=== PATIENT | male | born 1990 | race Caucasian/White ===

== ENCOUNTER 2025-01-03 17:10 | Inpatient (IN) | payer OTHER, SELFPAY ==
[2025-01-03 17:21] VITALS: BMI 27.0
[2025-01-03 17:29] VITALS: BP 148/83; PULSE 121; RESP 22; TEMP 37; O2SAT 97
--- OUTSIDE RECORDS SUMMARY | 2025-01-03 17:52 | XMS_ITS | Encounter Summary ---
Author Organization [facility] Address [address] [place] [id number] Phone Care Team Providers Care Surveyor Chain Helper Name Role Phone Addie Morris NP Primary Care Provider Encounter Details Date Type Department Care Team (Latest Contact Info) Description 02/23/2023 Transcribe Orders Virtual Department [address] [place] [address] Medina Wilson NP [address] [place] [id number] Wheezing (Primary Dx) Social History Tobacco Use Types Packs/Day Years Used Date Smoking Tobacco: Former Smokeless Tobacco: Current Snuff Alcohol Use Standard Drinks/Week Comments No 0 (1 standard drink = 0.6 oz pur e alcohol) Education Answer Date Recorded Are you interested in more education? Not on gregory e 06/03/2022 Are you concerned about learning? Not on file 06/03/2022 No 06/03/2022 No 06/03/2022 Digital Access Answer Date Recorded No 06/29/2022 No 06/29/2022 No 06/29/2022 Reliable internet access at home? Not on file 06/29/2022 Device with a working camera? Not on file Sex and Gender Information Value Date Recorded Sex Assigned at Male 02/13/2017 9:38 AM EST Legal Sex Male 8:57 PM EDT Gender Identity Male 02/13/2017 9:38 AM EST Sexual Orientation Straight 09/07/2023 12 :53 PM EDT documented as of this encounter Plan of Treatment Not on file documented as of this encounter Visit Diagnoses Diagnosis Wheezing- Primary documented in this encounter Care Teams Surveyor Chain Helper Relationship Specialty Start Date End Date Addie Morris NP [facility] [place] [address] [email or web address] PCP - General Family Medicine 09/25/17 documented as of this encounter Additional Source Comments The information contained in this document represents components of the legal health record. It is not the complete legal health record.[facility]
--- OUTSIDE RECORDS SUMMARY | 2025-01-03 17:52 | XMS_ITS | Clinical Summary ---
Author Organization [facility] Address [address] [place] [address] Phone Care Team Providers Care Validation Leader Name Role Phone Unavailable Primary Care Provider Unavailabl e Immunizations Immunization Administration Dates Next Due DTP 10/01/1998, 4,01/04/1993,10/27 Hep B, ped/adol 10/01/1998,08/04/1993,06/12/1993 Hib (HbOC) 03/05/1993,01/04/1993,1992 MMR 10/01/1998,12/28/1997 Meningococcal Conj (Menactra) MCV4P 09/03/2007 OPV 12/28/1997,01/04/1993,1992 Td (adult) (MBL), 2 Lf tetan us toxoid, PF, adsorbed 03/26/2004 Social History Tobacco Use Types Packs/Day Years Used Date Smoking Tobacco: Never Assessed Sex and Gender Information Value Date Recorded Sex Assigned at Not on file Legal Sex Male 4:08 PM EST Gender Identity Not on file Sexual Orientation Not on file Plan of Treatment Health Maintenance Due Date Last Done Comments DTaP,Tdap,and Td Vaccines (5 - Tdap) 03/27/2004 03/26/2004, 10/01/1998, 03/05/1993, Additional history exists Varicella Vaccines (1 of 2 - 13+ 2-dose series) 2005 HPV Vaccines (1 - 3-dose SCDM series) 08/31/2019 Influenza Vaccines (#1) 2024 COVID-19 Vaccine (1 - 2024- season) 2024 HIB Vaccines Aged Out 03/05/1993, 12/08, 1992 No longer eligible based on patient's age to complete this topic IPV Vaccines Completed 12/28/1997, 12/08, 1992 Hepatitis B Vaccines Completed 10/01/1998, 08/04/1993, 06/12/1993 MMR Vaccines Completed 10/01/1998, 12/28/1997 Meningococcal Vaccine Aged Out 09/03/2007 No melody sallie eligible based on patient's age to complete this topic Hepatitis A Vaccines Aged Out No long er eligible based on patient's age to complete this topic Men B Vaccine Aged Out No longer elig ible based on patient's age to complete this topic Pneumococcal Vaccine Aged Out No long er eligible based on patient's age to complete this topic
[2025-01-03 17:59] LABS: MANUAL DIFF FLAG NO
--- NOTE | 2025-01-03 17:59 | ED_ITS ---
HPI - Psych General Chief Complaint: Psychiatric Symptoms Stated Complaint: SECTION 12 Time Seen by Provider: 01/03/25 17:28 History of Present Illness ED Provider: Brady Cunningham MD HPI Narrative: [age] male sent [facility] facility requesting medication management. The patient is cooperative somewhat hyperactive. Denies SI or HI. Agrees to have his medications adjusted tells me he has only been taking Abilify and olanzapine he does smoke cigarettes denies drug use denies any injuries or any other acute medical Related Data Home Medications ?Medication ?Instructions ?Recorded ?Confirmed aripiprazole lauroxil 1,064 mg/3.9 1,064 mg IM [id number] S 01/03/25 01/03/25 mL suspension,ext.rel IM syringe fluvoxamine 100 mg tablet 100 mg PO BEDTIME 01/03/25 1 03/05/24 nicotine (polacrilex) 2 mg gum 2 mg PO Q2H PRN Nicotin e Cravings 01/03/25 01/03/25 olanzapine 20 mg tablet 30 mg PO BEDTIME 01/03/25 Allergies Allergy/AdvReac Type Severity Reaction Status Date / Time No Known Allergies Allergy Verified 01/03/25 17:30 [facility] Social History Social History Household Members: Family Housing: House Do you presently have visiting nurse or other home services: No Patient Tobacco Use Status: Never used Tobacco Smoked in Last 30 Days: No e-Cigarette/Vaping Use: Never Used Patient Interested in Nicotine Replacement: No Currently Displaying Signs/Symptoms of Drug Intoxication Withdrawal: No Have you been hit, kicked, punched, or otherwise hurt by someone within the past year? If so, by whom?: No Do you feel safe in your current relationship?: No Current Relationship Is there a partner from a previous relationship who is making you feel unsafe now?: No Are you made to feel afraid or neglected: No Advance Directives: No Advance Directives Information Provided: No Do you have thoughts of harming others: None Do you have a plan to hurt others: No Plan Recently lost weight without trying: No How much weight loss: Not applicable Eating poorly because of decreased appetite: No Nutrition screen score: 0 Nutrition Risks: No Nutritional Risk Poor oral hygiene: No service: No Sexual orientation: Straight/Heterosexual Physical Exam 2 Exam: Exam: EXAM: Gen: Alert, awake, well appearing, well hydrated. Head: Atraumatic Eyes: Anicteric, Normal conjunctiva. ENT: Moist mucosa, no pallor. ? Neck: Supple. Skin: ?No observable rash or bruising on exposed or examined skin Respiratory: Breathing comfortably, No distress.Clear to auscultation bilaterally, symmetric chest expansion, No wheeze, rales, ronchi. Cardiovascular: Regular rate and rhythm. No murmurs or rub. Well perfused periphery, warm extremities. No edema. ? Abdominal: No focal tenderness. Soft, no objective distension. No palpable masses or obvious organomegaly. ?No guarding, no rebound tenderness or other peritoneal findings. : No flank tenderness. Neuro: Alert. Gross movement of all extremities intact. ?Face symmetric cranial nerve testing grossly normal and not relevant to the current presentation. Psych: Calm. Cooperative. No SI or HI. Manic MSK: No grossly visible deformity. Vital signs: See flowsheet Vital Signs: Vital Signs: Last Vital Signs Temp 96.6 F L 01/07/25 07:39 Pulse 82 01/07/25 07:39 Resp 16 01/07/25 07:39 BP 149/87 H 01/07/25 07:39 Pulse Ox 96 01/07/25 07:39 O2 Del Method Room Air 01/07/25 07:39 BMI result Body Mass Index 27.0 Course Reevaluation(s) Reevaluation #1: Time: 06:04 Date: 01/04/25 Provider: Paras Palomares MD Patient in physician observation for psychiatric evaluation.? No acute events reported overnight. No current complaints. VS stable.? Patient is in bed search status. Will continue to monitor. 01/05/25 Provider: Triston Velázquez MD 04:44 Patient in physician observation for psychiatric evaluation.? No acute events reported overnight. No current complaints. VS stable.? Patient is an adult involuntary inpatient bed search status. Will continue to monitor. 10:50 Patient requested to speak to me regarding his section 12. I did inform him that has placed in his section 12 by the police when he was 1st brought to the emergency department. I told him that the 3 day evaluation does not start until he is hospitalized and evaluated by a psychiatric provider. I also told him that the 3 days are 3 business days only. The patient did seem to understand this discussion. While I was talking to him, the patient did have delusional thoughts regarding being ?outside of this timeline? and involved in the ?[employer] [place] at virus ?. The patient will remain on a section 12 and is an inpatient bed search. The patient is willing to take his outpatient medications and these were ordered for him. Nurse states he has been compliant. We will continue to monitor. Time: 04:26 Date: 01/06/25 Provider: Triston Velázquez MD Patient in physician observation for psychiatric evaluation. Patient re- evaluated yesterday by care team and continues to meet inpatient level of care.? No acute events reported overnight. No current complaints. VS stable.? Patient is in bed search status. Time: 12:33 Date: 01/06/25 Provider: Triston Velázquez MD Physician observation ended at 12:33. Patient admitted to [facility] inpatient psychiatry. Medications Administered Generic Name Dose Route Start Last Admin Trade Name Freq PRN Reason Stop Dose Admin Fluvoxamine Maleate 100 mg 01/05/25 05:45 01/06/25 20:16 Fluvoxamine Maleate 50 Mg Tablet PO 100 mg BEDTIME MOSES Administration Lorazepam 0.5 mg 01/05/25 21:00 01/07/25 08:53 Lorazepam 0.5 Mg Tablet PO 0.5 mg BID MOSES Administration Melatonin 6 mg 01/05/25 21:00 01/06/25 20:16 Melatonin 3 Mg Tablet PO 6 mg BEDTIME MOSES Administration Olanzapine 30 mg 01/05/25 05:45 01/06/25 20:16 Olanzapine 10 Mg Tablet PO 30 mg BEDTIME MOSES Administration Discontinued Medications Generic Name Dose Route Start Last Admin Trade Name Freq PRN Reason Stop Dose Admin Diazepam 4 mg 01/03/25 18:05 01/03/25 18:34 Diazepam 2 Mg Tablet PO 01/03/25 18:06 Not Given ONCE ONE Olanzapine 20 mg 01/03/25 19:27 01/03/25 20:14 Olanzapine 10 Mg Tablet PO 01/03/25 19:28 20 mg ONCE ONE Administration Medical Decision Making Medical Decision Making MDM Narrative: Medical Decision Makin-year-old male likely with a acute kevin without psychosis. He is cooperative no SI or HI. No acute medical complaints. He is medically clear based on examination and lab review. Plan for benzo offered PRN in the afternoon and evening olanzapine. We will need crisis and psychiatry intervention. Preliminary Favored Differential Diagnosis: Kevin. Medication nonadherence a vivi additional considered etiologies Testing Interpreted Independently: ?See below for details Radiology or Lab testing Results Reviewed: ?See below for details Consults: ?See below for details Independent Historians/External Chart Reviews: ?See below for details Social Determinants of Health Impacting MDM/Planning: ?See below for details Lab Data 01/03/25 17:52 01/07/25 07:58 Labs: Lab Results 01/03/25 01/03/25 Range/Units 17:52 17:53 WBC 6.8 (4.8-10.8) X10*3/uL RBC 5.05 (4.60-5.80) X10*6/uL Hgb 15.8 (14.0-18.0) g/dl Hct 44.8 (42.0-52.0) % MCV 88.7 (80.0-98.0) fL MCH 31.3 (27.0-33.0) pg MCHC 35.3 (31.0-36.0) g/dl RDW 11.9 (11.0-16.0) % Plt Count 237 (160-400) X10*3/uL MPV 8.3 L (9.4-12.4) fL Immature Gran % (Auto) 0.7 H (0.0-0.4) % Neut % (Auto) 55.9 (45-73) % Lymph % (Auto) 32.8 (20-40) % [place] % (Auto) 9.6 (2-11) % Eos % (Auto) 0.4 (0-4) % Baso % (Auto) 0.6 (0-2) % Lymph # (Auto) 2.2 (1.2-4.9) X10*3/uL [place] # (Auto) 0.7 (0.1-1.2) X10*3/uL Eos # (Auto) 0.0 (0.0-0.4) X10*3/uL Baso # (Auto) 0.0 (0.0-0.2) X10*3/uL Abs Immat Gran (auto) 0.05 H (0.00-0.03) X10*3/uL Absolute Neuts (auto) 3.8 (2.0-8.3) x10*3/uL Absolute Nucleated RBC 0.000 (0.0-0.012) X10*3/uL Nucleated RBC % (auto) 0.0 (0.0-0.2) /100WBC Sodium 142 (135-145) mmol/L Potassium 3.8 (3.3-5.1) mmol/L Chloride 109 H (96-108) mmol/L Carbon Dioxide 25 (22-29) mmol/L Anion Gap 12 (12-20) BUN 13 (9-16) mg/dL Creatinine 1.10 (0.5-1.4) mg/dL Estim Creat Clear Calc 112.0 Estimated GFR > 60 Random Glucose 95 (60-115) mg/dL Calcium 9.8 (8.4-10.2) mg/dL Total Bilirubin 0.4 (0.0-1.0) mg/dL AST 30 (5-37) U/L ALT 43 H (0-40) U/L Alkaline Phosphatase 102 (39-117) U/L Total Protein 7.9 (6.5-8.0) g/dL Albumin 4.9 (3.5-5.0) g/dL Hold Yellow Top See Note Urine Color Yellow Urine Appearance Clear Urine pH 6.5 (5.0-9.0) Ur Specific [place] <= 1.005 (1.005-1.025) Urine Protein Negative (Neg-Trace) mg/dL Urine Glucose (UA) Negative (Negative) mg/dL Urine Ketones Negative (Negative) mg/dL Urine Blood Negative (Negative) Urine Nitrite Negative (Negative) Ur Leukocyte Esterase Negative (Negative) Urine RBC 0-2 (0-2) /HPF Urine WBC 0-5 (0-5) /HPF Ur Squamous Epith Cells 0-2 (0-2) /HPF Urine Bacteria None Seen (None Seen) Hyaline Casts 0-2 (0-2) /LPF Urine Opiates Screen Not Detected (Not Detect) Ur Buprenorphine Scrn Not Detected (Not Detect) ng/mL Ur Oxycodone Screen Not Detected (Not Detect) ng/mL Urine Methadone Screen Not Detected (Not Detect) ng/mL Urine Fentanyl Screen Not Detected (Not Detect) Ur Barbiturates Screen Not Detected (Not Detect) Ur Phencyclidine Scrn Not Detected (Not Detect) Ur Amphetamines Screen Not Detected (Not Detect) U Benzodiazepines Scrn Not Detected (Not Detect) Urine Cocaine Screen Not Detected (Not Detect) U Marijuana (THC) Screen Not Detected (Not Detect) Ethyl Alcohol < 10 mg/dL Discharge Plan Discharge Clinical Impression: Acute schizoaffective disorder, Post traumatic stress disorder Patient Disposition: Admitted As Inpatient Interventions: Rock-Suicide Risk Severity Scale Last Done: 01/07/25 08:00 Admission Worksheet (ED) Last Done: 01/06/25 14:03 Discharge Date/Time: 01/06/25 14:07
[2025-01-03 18:02] LABS: Hematocrit 44.8 % (42.0-52.0); Hemoglobin 15.8 g/dl (14.0-18.0); Imm Gran Abs Auto 0.05 X10*3/uL (0.00-0.03); Imm Gran Pct Auto 0.7 % (0.0-0.4); Lymphocytes Absolute Auto 2.2 X10*3/uL (1.2-4.9); Mean Corpuscular HGB Conc 35.3 g/dl (31.0-36.0); Mean Corpuscular Hemoglobin 31.3 pg (27.0-33.0); Mean Corpuscular Volume 88.7 fL (80.0-98.0); NRBC Abs Auto 0.000 X10*3/uL (0.0-0.012); NRBC Pct Auto 0.0 /100WBC (0.0-0.2); Platelet Count 237 X10*3/uL (160-400); Red Blood Count 5.05 X10*6/uL (4.60-5.80); White Blood Count 6.8 X10*3/uL (4.8-10.8)
[2025-01-03 18:05] LABS: Appearance Urine Clear; Glucose Urine UA Negative (Negative); PH 6.5 (5.0-9.0); Specific Gravity - Urine <= 1.005 (1.005-1.025)
[2025-01-03 18:14] LABS: Cannabinoid Screen Urine Not Detected (Not Detect)
[2025-01-03 18:28] LABS: Alanine Aminotransferase 43 U/L (0-40); Albumin Level 4.9 g/dL (3.5-5.0); Alkaline Phosphatase 102 U/L (39-117); Anion Gap 12 (12-20); Aspartate Amino Transferase 30 U/L (5-37); Blood Urea Nitrogen 13 mg/dL (9-16); Calcium 9.8 mg/dL (8.4-10.2); Carbon Dioxide 25 mmol/L (22-29); Chloride 109 mmol/L (96-108); Creatinine Clr Calc Pharmacy 112.0; Estimated Glomerular Filt Rate > 60; Potassium 3.8 mmol/L (3.3-5.1); Sodium 142 mmol/L (135-145); Total Protein 7.9 g/dL (6.5-8.0)
--- NOTE | 2025-01-03 18:43 | MHC.CARE ---
CARE Team called [facility] to inquire on reason for patient's admission. Leatha reports the patient was at [facility] but was feeling unsafe and experiencing paranoid delusions. Disposition for [facility]OC. Assessment to be faxed over. Patient notified. He is upset about the section and his inability to leave the pod. He requests to not be sent back to [facility].
--- NOTE | 2025-01-03 23:23 | PC.NURSE ---
Took over care at 23:00, pt sleeping at this time.
--- NOTE | 2025-01-04 02:58 | PC.NURSE ---
pt is sleeping at this time.
[2025-01-04 06:03] VITALS: RESP 16
--- NOTE | 2025-01-04 06:03 | PC.NURSE ---
pt refusing vitals.
--- NOTE | 2025-01-04 08:17 | PC.NURSE ---
pt presently sleeping, rr equal/non labored, plan of care ongoing
[2025-01-04 11:00] VITALS: RESP 22
--- NOTE | 2025-01-04 12:18 | PHA.MEDREC ---
Pharmacy Consult ? Medication Reconciliation Pharmacy has completed the medication reconciliation.Med rec done by nursing
--- NOTE | 2025-01-04 12:30 | MHC.CARE ---
Patient was in a H bed at [facility] in [place], and per Lucina at [facility] he would likely be able to return to the bed following IPLOC tx
--- NOTE | 2025-01-04 16:38 | PC.NURSE ---
patients mother came to visit the patient, upon her visit patient became loud and had flight of ideas thinking negative energy beams were infiltrating his body. he repeatedly apologized for raising his voice to his mother, he came to the nurses desk asking for the plan. This nurse repeated the plan of him to be seen by psych to go over medications he was having a difficult time with and not wanting to take, he continues to state he wants to return to respite which according to the CARE team they are willing to take the patient back if he is medicated.
[2025-01-04 17:50] VITALS: BP 120/79; PULSE 85; RESP 18; TEMP 36.4; O2SAT 96
--- NOTE | 2025-01-04 19:13 | PC.NURSE ---
Took over care from ELDER Ramirez, pt sleeping at this time.
--- NOTE | 2025-01-05 | ECG_ITS ---
Test Reason : MED CLEAR Blood Pressure : */* mmHG Vent. Rate : 68 BPM Atrial Rate : 68 BPM P-R Int : 174 ms QRS Dur : 96 ms QT Int : 386 ms P-R-T Axes : 72 71 5 degrees QTcB Int : 410 ms Normal sinus rhythm Normal ECG No previous ECGs available Referred By: Samantha Griffin Electronically Signed By: IRENE LOPEZ
--- NOTE | 2025-01-05 00:29 | PC.NURSE ---
pt sleeping at this time.
--- NOTE | 2025-01-05 02:28 | PC.NURSE ---
pt given 2 sandwiches and water, pt requesting to here music
--- NOTE | 2025-01-05 03:42 | PC.NURSE ---
pt listening to music, running around and doing push ups.
--- NOTE | 2025-01-05 03:49 | PC.NURSE ---
pt able to be redirected at this time.
[2025-01-05 04:28] VITALS: BP 141/70; PULSE 96; RESP 18; TEMP 36.9; O2SAT 97
--- NOTE | 2025-01-05 05:33 | PC.NURSE ---
Notified provider, med rec was completed on 01/03/25 but not entered in apr. requesting medication.
[2025-01-05 06:00] VITALS: RESP 20
--- NOTE | 2025-01-05 06:28 | PC.NURSE ---
pt refusing medication at this time.
--- NOTE | 2025-01-05 06:58 | PC.NURSE ---
Assumed care of patient at 0645, patient appears to be in no apparent distress this am, resting in bed, occasionally rolling back and forth. Continue plan of care for IPLOC
--- NOTE | 2025-01-05 09:47 | PC.NURSE ---
Pt comes out to nurses station asking when he will be seen by psychiatry, this RN educated pt that patient's typically are seen on the psychiatric units for med adjustments and evals. As soon as this RN mentioned that he would be going to an inpatient psychiatric unit, pt became upset, started pacing, punching his fists together in anger. Pt then glared at this RN and yossi stated I am not going to a psych tovar, I was just at the one at [facility] do you want me to miss [place] too? . This RN validated patient's concerns regarding being in a psychiatric tovar on holidays but again reiterated that we are waiting for the psychiatrist to come speak with him to determine the next steps in care. Pt became upset I need to talk to the [employer] ethics instructor because they said I wasn't going to the psych tovar and now I'm fucking stuck here . Pt then went over the pod phone and called [facility] to ask for a statement from one of the officers that brought him in. Pt then returned to the nurses station and began shaking the glass yelling I am not fucking going upstairs so youre gonna get me the psychiatrist and we are gonna sort my meds out and Im gonna leave . This RN notified Security of pts escalated behaviors as we as Dr. Velázquez, pts primary ER provider at this time. lamination inspector is also aware
--- NOTE | 2025-01-05 15:56 | P.CNPS_ITS ---
History of Present Illness Date of Service: 01/05/25 @1435 Chief Complaint: Crisis Reason for Consult: restart med Discussed with referring provider: No Sources of Information: chart reviewed and crisis/core team assessment reviewed HPI Narrative: Per care team note CARE Team called BACTERIOLOGIST DAIRY to inquire on reason for patient's admission, reports the patient was at [facility] but was feeling unsafe and experiencing paranoid delusions. Patient was also not compliant with meds Consult place regarding meds and waiting for IPLOC placement. Not able to assess patient at this time. Patient observed in assigned bed in the ED POD sleeping soudly. Per nursing, patient is labile, can be irritable and has been refused meds. However, after he was on the phone with someone in the family- Probably taking to his mom, he decided to take his scheduled HS zyprxa 20mg which made patient sedated and sleep when this provider attempted to see him. No PRN currently ordered by ED provider. Per record, patient was taking Ativan 0.5mg BID. I ordered them as scheduled and also add Ativan 1mg PRN. Trazodone and melatonin for insomnia. Haldo PRN for agiatation/psychosis. Nursing notify. Past Psychiatric History: Not able to obtain. Patient is currently sleeping. Personal & Social History: Not able to obtain. Patient is currently sleeping. Review of Systems Review of Systems No SOB/ No labored breathing. No N/V observed. Sleeping soundly in bed PMF Narrative: Not able to obtain. Patient is currently sleeping. Narrative: Not able to obtain. Patient is currently sleeping. Family History: Not able to obtain. Patient is currently sleeping. Social History: Not able to obtain. Patient is currently sleeping. Substance History: Not able to obtain. Patient is currently sleeping. Trauma History: Not able to obtain. Patient is currently sleeping. Diagnostics Vital Signs (24Hr): Vital Signs - 24 hr 01/04/25 17:50 01/05/25 04:28 01/05/25 06:00 Temperature 97.6 F 98.4 F Pulse Rate 85 96 Respiratory Rate 18 18 20 Blood Pressure 120/79 141/70 H Pulse Oximetry 96 97 Oxygen Delivery Method Room Air Room Air BMI result Body Mass Index 27.0 Labs 01/03/25 17:52 01/07/25 07:58 Labs: Laboratory Results - last 48 hr 01/03/25 01/03/25 17:52 17:53 WBC 6.8 RBC 5.05 Hgb 15.8 Hct 44.8 MCV 88.7 MCH 31.3 MCHC 35.3 RDW 11.9 Plt Count 237 MPV 8.3 L Immature Gran % (Auto) 0.7 H Neut % (Auto) 55.9 Lymph % (Auto) 32.8 [place] % (Auto) 9.6 Eos % (Auto) 0.4 Baso % (Auto) 0.6 Lymph # (Auto) 2.2 [place] # (Auto) 0.7 Eos # (Auto) 0.0 Baso # (Auto) 0.0 Abs Immat Gran (auto) 0.05 H Absolute Neuts (auto) 3.8 Absolute Nucleated RBC 0.000 Nucleated RBC % (auto) 0.0 Sodium 142 Potassium 3.8 Chloride 109 H Carbon Dioxide 25 Anion Gap 12 BUN 13 Creatinine 1.10 Estim Creat Clear Calc 112.0 Estimated GFR > 60 Random Glucose 95 Calcium 9.8 Total Bilirubin 0.4 AST 30 ALT 43 H Alkaline Phosphatase 102 Total Protein 7.9 Albumin 4.9 Hold Yellow Top See Note Urine Color Yellow Urine Appearance Clear Urine pH 6.5 Ur Specific [place] <= 1.005 Urine Protein Negative Urine Glucose (UA) Negative Urine Ketones Negative Urine Blood Negative Urine Nitrite Negative Ur Leukocyte Esterase Negative Urine RBC 0-2 Urine WBC 0-5 Ur Squamous Epith Cells 0-2 Urine Bacteria None Seen Hyaline Casts 0-2 Urine Opiates Screen Not Detected Ur Buprenorphine Scrn Not Detected Ur Oxycodone Screen Not Detected Urine Methadone Screen Not Detected Urine Fentanyl Screen Not Detected Ur Barbiturates Screen Not Detected Ur Phencyclidine Scrn Not Detected Ur Amphetamines Screen Not Detected U Benzodiazepines Scrn Not Detected Urine Cocaine Screen Not Detected U Marijuana (THC) Screen Not Detected Ethyl Alcohol < 10 Mental Status Exam Mental Status Exam Narrative: Observed in beds sleeping soundly. No aggressive behavior. Not expressed SI/SIB/HI/AVH. Not able to assess for psychotic behaviors. Medications Medications Current Medications Fluvoxamine Maleate (Fluvoxamine Maleate 50 Mg Tablet) 100 mg PO BEDTIME MOSES Last Admin: 01/05/25 07:06 Dose: Not Given Haloperidol (Haloperidol 5 Mg Tablet) 5 mg PO Q4H PRN PRN Reason: agitation/psychosis Hydroxyzine HCl (Hydroxyzine Hcl 50 Mg Tablet) 50 mg PO Q6H PRN PRN Reason: mild anxiety Lorazepam (Lorazepam 1 Mg Tablet) 1 mg PO Q4H PRN PRN Reason: severe anxiety Lorazepam (Lorazepam 0.5 Mg Tablet) 0.5 mg PO BID MOSES Melatonin (Melatonin 3 Mg Tablet) 6 mg PO BEDTIME MOSES Nicotine (Nicotine 21 Mg Patch.Td24) 21 mg TRANSDERMA DAILY PRN PRN Reason: nicotine craving Nicotine Polacrilex (Nicotine Polacrilex 2 Mg Gum) 2 mg BUCCAL Q2H PRN PRN Reason: Nicotine Cravings Olanzapine (Olanzapine 10 Mg Tablet) 30 mg PO BEDTIME MOSES Last Admin: 01/05/25 12:13 Dose: 30 mg Trazodone HCl (Trazodone Hcl 50 Mg Tablet) 50 mg PO BEDTIME MRX1 PRN PRN Reason: mild anxiety Allergies Allergies Allergy/AdvReac Type Severity Reaction Status Date / Time No Known Allergies Allergy Verified 01/03/25 17:30 Assessment & Plan Assessment & Plan (1) Nonadherence to medication: Status: Acute Code(s): Z91.148 - Patient's other noncompliance with medication regimen for other reason Plan Consult place regarding meds and waiting for IPLOC placement. Not able to assess patient at this time. Patient observed in assigned bed in the ED POD sleeping soudly. Per nursing, patient is labile, can be irritable and has been refused meds. However, after he was on the phone with someone in the family- Probably taking to his mom, he decided to take his scheduled HS zyprxa 20mg which made patient sedated and sleep when this provider attempted to see him. No PRN currently ordered by ED provider. Per record, patient was taking Ativan 0.5mg BID. I ordered them as scheduled and also add Ativan 1mg PRN. Trazodone and melatonin for insomnia. Haldo PRN for agiatation/psychosis. Nursing notify Total time managing care of this patient today ____ minutes. Patient educated on: other (Not able to discuss or inform patient as he is currently sleeping. ) Informed Consent: further education needed (Not able to provide education. Patient is currently sleeping)
--- NOTE | 2025-01-05 17:08 | PC.NURSE ---
pt took 4 hour long nap, no apparent distress noted. Woke up and requested food which was provided per request
[2025-01-05 17:15] VITALS: BP 144/70; PULSE 88; RESP 17; TEMP 36.7; O2SAT 98
--- NOTE | 2025-01-05 20:49 | PC.NURSE ---
Assumed care at 1845. Patient presents as cooperative with flat affect. Adherent to HS scheduled medications. No PRN's utilized. Mouth checks completed. Agreeable to allow EKG to be performed. Requested food/liquids. Shook head No when asked about SI/HI/AVH. Agreeable to alert staff if feeling unsafe. 15 minute safety checks ongoing. Plan of care ongoing.
[2025-01-06 05:53] VITALS: BP 115/67; PULSE 80; RESP 18; TEMP 36.1; O2SAT 97
--- NOTE | 2025-01-06 07:04 | PC.NURSE ---
Assumed care of patient at 0645, patient appears to be in no apparent distress this am, resting in bed, respirations even and unlabored. Continue plan of care for IPLOC
--- NOTE | 2025-01-06 11:10 | PC.NURSE ---
Pt awake, listening to music, no apparent distress is noted at this time
[2025-01-06 14:21] VITALS: BP 146/66; PULSE 92; RESP 18; TEMP 36; O2SAT 96
[2025-01-06 14:28] VITALS: BMI 32.8
--- NOTE | 2025-01-06 14:45 | HO.PSYADMNOT ---
HPI Date of Service: 01/06/25 Chief Complaint: Crisis Sources of Information: patient interviewed, chart reviewed and crisis/core team assessment reviewed HPI Subjective Notes: Schafer Warning and Conditional Voluntary Narrative: Patient is a 34 year old male with hx of schizoaffective d/o and PTSD who was brought in via ambulance d/t disorganized and delusional thinking secondary to medication noncompliance. Per crisis report, Patient was brought in from [facility] d/t feeling unsafe and presenting with disorganized and delusional thoughts. Patient was recently discharged on 12/25/24 from [facility] after being admitted for 2 months and had a step down to [facility]. Patient is connected with [facility] and has ACCS services. Patient reported having super gramajo and attempted to demonstrate by holding up his pointer finder and then bringing it back down to his side. Patient reported having to use his gramajo today to control the strong forces across the street from the [facility]. Patient was transported to [facility] after refusing to return to [facility] due to fear of snakes . Utox negative for all substances. denies SI/HI/VH/AH. CONFERENCE SERVICES DIRECTOR spoke to patient's mother who reported pt usually de-compensates when he is medication non-adherent or cheeking. During admission assessment, pt present alert and oriented x3. Cooperative. flight of ideas. hyperverbal. rapid, loud and pressured speech. tangential. disorganized; but able to be redirected back to conversation. Patient reports he missed two days of meds at respite ; pt stated, Man, if only not taking meds for 2 days did this to me than I really need to keep taking them. Yeah, that's probably why I'm here . Patient denies SI/HI/VH/AH. Patient was not observed responding to internal stimuli. Patient focused on discussing different universes and Yoma's who are shape shifters ; pt reports he is becoming a Yoma . Patient reports he plans on being medication compliant. Patient abruptly ended assessment and stated, are we done here? and proceeded to walk out of unit office. Past Psychiatric History: hx of multiple inpatient psychiatric hospitalizations. Was discharged from [facility] on 12/25/24. Outpatient psychiatrist: Dr. Yang [facility] foster care case manager: Miguel Valdez ([phone]) Medical Evaluation Reviewed: Yes [facility] Social History: Lives with mother and stepfather. single. no kids. Substance History: utox negative. Trauma History: yes Diagnostics Vital Signs (24Hr): Vital Signs - 24 hr 01/05/25 17:15 01/06/25 05:53 01/06/25 14:21 Temperature 98.1 F 97.0 F 96.8 F Pulse Rate 88 80 92 Respiratory Rate 17 18 18 Blood Pressure 144/70 H 115/67 146/66 H Pulse Oximetry 98 97 96 Oxygen Delivery Method Room Air Room Air Room Air BMI result Body Mass Index 32.8 Labs 01/03/25 17:52 01/03/25 17:52 Meds/Allergies Meds Home Medications ?Medication ?Instructions ?Recorded ?Confirmed ?Type aripiprazole lauroxil 1,064 mg/3.9 1,064 mg IM [id number] 01/03/25 01/03/25 History mL suspension,ext.rel IM syringe fluvoxamine 100 mg tablet 100 mg PO BEDTIME 01/03/25 01/03/25 History nicotine (polacrilex) 2 mg gum 2 mg PO Q2H PRN Nicotine Cravings 01/03/25 01/03/25 History olanzapine 20 mg tablet 30 mg PO BEDTIME 01/03/25 01/03/25 History Allergies Allergies Allergy/AdvReac Type Severity Reaction Status Date / Time No Known Allergies Allergy Verified 01/03/25 17:30 Mental Status Exam Mental Status Exam Patient Appearance: Appropriate Patient Orientation: Person, Place, Time and Situation Level of Consciousness: Awake and Alert Patient Behavior: Talkative, Cooperative and Good Eye Contact Mood Description: Happy Affect Description: Happy Ability to Follow Directions: Good Speech Pattern: Clear, Rambling, Rapid, Loud and Pressured Delusions: Paranoid Ideation and Bizarre Thought Process: Disoriented and Racing Thought Content: positive for Flight of Ideas, positive for Disoriented and positive for Tangential Assessment & Plan Assessment & Plan (1) Schizoaffective disorder: Status: Acute Code(s): F25.9 - Schizoaffective disorder, unspecified (2) PTSD (post-traumatic stress disorder): Status: Acute Code(s): F43.10 - Post-traumatic stress disorder, unspecified Plan Patient is a 34 year old male with hx of schizoaffective d/o and PTSD who was brought in via ambulance d/t disorganized and delusional thinking secondary to medication noncompliance. Plan: CV 15 minute safety checks Continue home medications Order mouth checks with medication administration d/t hx of possibly cheeking. obtain collateral encourage groups discharge planning Patient educated on: diagnosis and medication risk/benefits Reason for continued inpatient stay Substantial Risk for: med/psych decompensation Statement Statement: I have reviewed the history and physical and performed a pertinent examination on my patient. No changes have occurred unless specified. If the History and Physical was not performed prior to admission, the Hospitalist's service will be consulted for completing the admission physical. Time Spent With Patient Time: Total time managing care of this patient today _60___ minutes.
--- NOTE | 2025-01-06 16:00 | PC.NURSE ---
Patient was offered and declined the flu vaccine
--- NOTE | 2025-01-06 18:09 | PC.ADMIT ---
Patient is a 34 y/o male admitted from the ED POD on a CV (later signed a 3 day), for tx of Unspecified Schizophrenia. The patient was BIBA? from [facility] with delusional/disorganized thinking r/t noncompliance of his medications.? Per crisis report, Patient was brought in due to feeling unsafe and presenting with delusional thoughts. Patient was recently discharged on 12/25/24 from [facility] after being admitted for 2 months and [facility]. Pt refused to return to [facility] d/t ?fear of the snakes?, thus was sent to [facility] had spoken with pt?s mother who reported her son behaving in a similar manner when he is ?cheeking? his meds.? Upon admission assessment, He is A&Ox3 with impaired insight, judgment and impulse control.Speech is pressured and pt presents with tangential, delusional and disorganized thought process. Pt states ?I want to make this clear, I am only here for medication adjustment?. States he had not been compliant with his medications while at the respite for two days and believes this could be why he?s here now. He describes himself as a ?Yoma?, which he states is a shape shifter that is keeping him from his family. Pt then proceeds to burst out laughing, but is easily re-directable. He denies SI/HI/AVH, denies feelings of depression/anxiety but describes feeling like hes ?tripping?. His sleep and appetite are well, reports occasional drinking and smoking marijuana but has not done either in over two months (tox was negative). Skin check unremarkable, pt placed on 15 minute checks for safety and an order has been placed for mouth checks during med administrations.?
[2025-01-06 20:00] VITALS: BP 132/74; PULSE 89; RESP 16; TEMP 36.4; O2SAT 96
[2025-01-07 07:39] VITALS: BP 149/87; PULSE 82; RESP 16; TEMP 35.9; O2SAT 96
--- NOTE | 2025-01-07 08:31 | HO.PM.IMCN ---
History of Present Illness Data of Consult Service Date: 01/07/25 Primary Care Provider: None Physician HPI Reason for consult: Medical H&P 34-year-old male presents to the ED with psychiatric symptoms and requesting medication management. Patient presented as hyperactive with acute kevin without psychosis. His initial ED workup revealed no leukocytosis, no anemia. No electrolyte imbalances, no evidence of renal or liver dysfunction. Urine without evidence of infection. Tox screen negative, negative alcohol. Now admitted for inpatient psychiatric stabilization. On exam he denies any medical concerns. Review of Systems Review of Systems: Denies any shortness of breath, chest pain, headaches, dysuria, abdominal pain or discomfort, nausea, vomiting or diarrhea. Denies fever or chills. PMFSH Social History Household Members: Family Housing: House Do you presently have visiting nurse or other home services: No Patient Tobacco Use Status: Never used Tobacco Smoked in Last 30 Days: No e-Cigarette/Vaping Use: Never Used Patient Interested in Nicotine Replacement: No Currently Displaying Signs/Symptoms of Drug Intoxication Withdrawal: No Have you been hit, kicked, punched, or otherwise hurt by someone within the past year? If so, by whom?: No Do you feel safe in your current relationship?: No Current Relationship Is there a partner from a previous relationship who is making you feel unsafe now?: No Are you made to feel afraid or neglected: No Advance Directives: No Advance Directives Information Provided: No Do you have thoughts of harming others: None Do you have a plan to hurt others: No Plan Recently lost weight without trying: No How much weight loss: Not applicable Eating poorly because of decreased appetite: No Nutrition screen score: 0 Nutrition Risks: No Nutritional Risk Poor oral hygiene: No service: No Sexual orientation: Straight/Heterosexual Meds Allergies Allergy/AdvReac Type Severity Reaction Status Date / Time No Known Allergies Allergy Verified 01/03/25 17:30 Active Medications: Current Medications Acetaminophen (Acetaminophen 325 Mg Tablet) 650 mg PO Q6H PRN PRN Reason: Headache/Pain, Scale 1-10 Al Hydroxide/Mg Hydroxide (Magnesium Hydrox/Alum Hydrox 30 Ml Oral.Susp) 30 ml PO Q6H PRN PRN Reason: Heartburn/Nausea Fluvoxamine Maleate (Fluvoxamine Maleate 50 Mg Tablet) 100 mg PO BEDTIME MOSES Last Admin: 01/06/25 20:16 Dose: 100 mg Haloperidol (Haloperidol 5 Mg Tablet) 5 mg PO Q4H PRN PRN Reason: agitation/psychosis Hydroxyzine HCl (Hydroxyzine Hcl 50 Mg Tablet) 50 mg PO Q6H PRN PRN Reason: mild anxiety Lorazepam (Lorazepam 1 Mg Tablet) 1 mg PO Q4H PRN PRN Reason: severe anxiety Lorazepam (Lorazepam 0.5 Mg Tablet) 0.5 mg PO BID [facility] Last Admin: 01/06/25 20:16 Dose: 0.5 mg Magnesium Hydroxide (Milk Of Magnesia 30 Ml Oral.Susp) 30 ml PO DAILY PRN PRN Reason: Constipation Melatonin (Melatonin 3 Mg Tablet) 6 mg PO BEDTIME [facility] Last Admin: 01/06/25 20:16 Dose: 6 mg Nicotine (Nicotine 21 Mg Patch.Td24) 21 mg TRANSDERMA DAILY PRN PRN Reason: nicotine craving Nicotine Polacrilex (Nicotine Polacrilex 2 Mg Gum) 2 mg BUCCAL Q2H PRN PRN Reason: Nicotine Cravings Olanzapine (Olanzapine 10 Mg Tablet) 30 mg PO BEDTIME [facility] Last Admin: 01/06/25 20:16 Dose: 30 mg Trazodone HCl (Trazodone Hcl 50 Mg Tablet) 50 mg PO BEDTIME MRX1 PRN PRN Reason: mild anxiety Home Medications ?Medication ?Instructions ?Recorded ?Confirmed ?Last Taken ?Type aripiprazole lauroxil 1,064 mg/3.9 1,064 mg IM [id number] 01/03/25 01/03/25 12/06/24 History mL suspension,ext.rel IM syringe fluvoxamine 100 mg tablet 100 mg PO BEDTIME 01/03/25 01/03/25 01/01/25 History nicotine (polacrilex) 2 mg gum 2 mg PO Q2H PRN Nicotine Cravings 01/03/25 01/03/25 Unknown History olanzapine 20 mg tablet 30 mg PO BEDTIME 01/03/25 01/03/25 12/30/24 History Physical Exam Vital Signs and Narrative: Vital Signs: Last Vital Signs Temp 96.6 F L 01/07/25 07:39 Pulse 82 01/07/25 07:39 Resp 16 01/07/25 07:39 BP 149/87 H 01/07/25 07:39 Pulse Ox 96 01/07/25 07:39 O2 Del Method Room Air 01/07/25 07:39 BMI result Body Mass Index 32.8 Alert and oriented X3, calm and cooperative. Answers questions. Sleepy, easily arousable. Neuro: CN II-X11 intact, no deficits, visual acuity intact EYES: PERRLA, EOM intact ENT: Hearing intact, MMM Cardiac: S1 S2 RRR, No ectopy Pulmonary: lungs clear to auscultation, No increased WOB. Abdominal: BS active in all 4 quadrants, no guarding or tenderness MSK: Strength 5/5 upper and lower extremities. Moves all extremities : Deferred Extremities: No edema in lower extremities Psych: Mood stable, Quiet and cooperative. Skin: Warm and dry, Intact Results Labs 01/03/25 17:52 01/07/25 07:58 Labs: Laboratory Results - last 24 hr 01/07/25 07:58 Estimat Average Glucose 105 Hemoglobin A1c % 5.3 Assessment and Plan (1) PTSD (post-traumatic stress disorder): Status: Acute (2) Schizoaffective disorder: Status: Acute Plan 34-year-old male with past medical history as listed below presented to the emergency department with disorganized delusional thinking due to med compliance. Recently discharged from [facility]. He is now admitted for stabilization. Schizoaffective disorder/PTSD Treatment per psychiatric team Thank you for allowing me to participate in the care of this patient. Will follow with you, please notify medical provider with any changes in condition or concerns.
[2025-01-07 08:36] LABS: Alanine Aminotransferase 46 U/L (0-40); Albumin Level 4.5 g/dL (3.5-5.0); Alkaline Phosphatase 94 U/L (39-117); Anion Gap 13 (12-20); Aspartate Amino Transferase 38 U/L (5-37); Blood Urea Nitrogen 13 mg/dL (9-16); Calcium 9.4 mg/dL (8.4-10.2); Carbon Dioxide 26 mmol/L (22-29); Chloride 107 mmol/L (96-108); Cholesterol 173 mg/dL (<200); Creatinine Clr Calc Pharmacy 144.8; Estimated Glomerular Filt Rate > 60; HDL Cholesterol 55 mg/dL (>40); Potassium 4.2 mmol/L (3.3-5.1); Sodium 142 mmol/L (135-145); Total Protein 7.5 g/dL (6.5-8.0); Triglycerides 205 mg/dL (<150)
--- NOTE | 2025-01-07 15:12 | P.PNPSI_ITS ---
Subjective Subjective Date of Service: 01/07/25 Reason For Visit: Crisis Subjective Notes: Conditional Voluntary Interim History: Patient signed 3 day notice last evening, then retracted 3 day notice. Patient continues with rapid, pressured speech, hyperverbal. Flight of ideas. Patient reports he came to the hospital d/t needing a medication adjustment ; pt has been medication compliant. Patient reports feeling tired and feeling my state of sloth coming back ; pt continues to talk about [place] . Difficult to follow during conversation d/t rapidly changing topics. Smiling and laughing to self. Will contact patient's mother tomorrow to obtain information regarding pt's baseline. Continue tx plan. Medication Compliance: Yes Side effects from medications: No Attending Groups: Intermittent Mental Status Exam Mental Status Exam Narrative: Pt is alert and oriented; behavior is cooperative, friendly; dressed in casual attire; mood is described as good ; eye contact appropriate; Speech is rapid rate, pressured, hyperverbal; flight of ideas; delusional, paranoid; denies SI/HI/VH/AH. Diagnostics Vital Signs (24Hr): Vital Signs - 24 hr 01/06/25 20:00 01/07/25 07:39 Temperature 97.5 F 96.6 F L Pulse Rate 89 82 Respiratory Rate 16 16 Blood Pressure 132/74 149/87 H Pulse Oximetry 96 96 Oxygen Delivery Method Room Air Room Air BMI result Body Mass Index 32.8 Labs 01/03/25 17:52 01/07/25 07:58 Labs: Laboratory Results - last 48 hr 01/07/25 07:58 Sodium 142 Potassium 4.2 Chloride 107 Carbon Dioxide 26 Anion Gap 13 BUN 13 Creatinine 0.99 Estim Creat Clear Calc 144.8 Estimated GFR > 60 Random Glucose 95 Estimat Average Glucose 105 Hemoglobin A1c % 5.3 Calcium 9.4 Total Bilirubin 0.6 AST 38 H ALT 46 H Alkaline Phosphatase 94 Total Protein 7.5 Albumin 4.5 Triglycerides 205 H Cholesterol 173 LDL Cholesterol, Calc 77 HDL Cholesterol 55 Medications Medications Current Medications Acetaminophen (Acetaminophen 325 Mg Tablet) 650 mg PO Q6H PRN PRN Reason: Headache/Pain, Scale 1-10 Al Hydroxide/Mg Hydroxide (Magnesium Hydrox/Alum Hydrox 30 Ml Oral.Susp) 30 ml PO Q6H PRN PRN Reason: Heartburn/Nausea Fluvoxamine Maleate (Fluvoxamine Maleate 50 Mg Tablet) 100 mg PO BEDTIME [facility] Last Admin: 01/06/25 20:16 Dose: 100 mg Haloperidol (Haloperidol 5 Mg Tablet) 5 mg PO Q4H PRN PRN Reason: agitation/psychosis Hydroxyzine HCl (Hydroxyzine Hcl 50 Mg Tablet) 50 mg PO Q6H PRN PRN Reason: mild anxiety Lorazepam (Lorazepam 1 Mg Tablet) 1 mg PO Q4H PRN PRN Reason: severe anxiety Lorazepam (Lorazepam 0.5 Mg Tablet) 0.5 mg PO BID [facility] Last Admin: 01/07/25 08:53 Dose: 0.5 mg Magnesium Hydroxide (Milk Of Magnesia 30 Ml Oral.Susp) 30 ml PO DAILY PRN PRN Reason: Constipation Melatonin (Melatonin 3 Mg Tablet) 6 mg PO BEDTIME [facility] Last Admin: 01/06/25 20:16 Dose: 6 mg Nicotine (Nicotine 21 Mg Patch.Td24) 21 mg TRANSDERMA DAILY PRN PRN Reason: nicotine craving Nicotine Polacrilex (Nicotine Polacrilex 2 Mg Gum) 2 mg BUCCAL Q2H PRN PRN Reason: Nicotine Cravings Olanzapine (Olanzapine 10 Mg Tablet) 30 mg PO BEDTIME [facility] Last Admin: 01/06/25 20:16 Dose: 30 mg Trazodone HCl (Trazodone Hcl 50 Mg Tablet) 50 mg PO BEDTIME MRX1 PRN PRN Reason: mild anxiety Allergies Allergies Allergy/AdvReac Type Severity Reaction Status Date / Time No Known Allergies Allergy Verified 01/03/25 17:30 Assessment & Plan Assessment & Plan (1) Schizoaffective disorder: Status: Acute Code(s): F25.9 - Schizoaffective disorder, unspecified (2) PTSD (post-traumatic stress disorder): Status: Acute Code(s): F43.10 - Post-traumatic stress disorder, unspecified Plan Patient is a 34 year old male with hx of schizoaffective d/o and PTSD who was brought in via ambulance d/t disorganized and delusional thinking secondary to medication noncompliance. Plan: CV 15 minute safety checks Continue home medications Order mouth checks with medication administration d/t hx of possibly cheeking. obtain collateral encourage groups discharge planning 01/07: Patient signed 3 day notice last evening, then retracted 3 day notice. Patient continues with rapid, pressured speech, hyperverbal. Flight of ideas. Patient reports he came to the hospital d/t needing a medication adjustment ; pt has been medication compliant. Patient reports feeling tired and feeling my state of sloth coming back ; pt continues to talk about [place] . Difficult to follow during conversation d/t rapidly changing topics. Smiling and laughing to self. Will contact patient's mother tomorrow to obtain information regarding pt's baseline. Continue tx plan. Patient educated on: diagnosis and medication risk/benefits Reason for continued inpatient stay Substantial Risk for: med/psych decompensation Time Spent With Patient Time: Total time managing care of this patient today _20___ minutes.
[2025-01-07 19:30] VITALS: BP 165/74; PULSE 89; TEMP 36; O2SAT 96
[2025-01-08 08:00] VITALS: BP 140/68; PULSE 71; RESP 16; TEMP 36.6; O2SAT 98
--- NOTE | 2025-01-08 10:19 | P.PNPSI_ITS ---
Subjective Subjective Date of Service: 01/08/25 Reason For Visit: Crisis Subjective Notes: Conditional Voluntary Interim History: Laying in bed napping most of morning. Keeping to self. Slower speech today. less hyperverbal. More organized but still flights of ideas and delusional. Pt stated, I'm lucho upset because I'm supposed to be taking care of a sight seeing person with slits in his eyes. But I'm here rather than at respite . Patient requested to have Zyprexa PRN added; Start: Zyprexa 5mg PO BID PRN psychosis/agitation. denies SI/HI/VH/AH. T/W spoke to Andrews mother, Cecille Krause, who reports at baseline, pt is delusional and presents with rapid and pressured speech. Medication Compliance: Yes Side effects from medications: No Attending Groups: Intermittent Mental Status Exam Mental Status Exam Narrative: Pt is alert and oriented; behavior is cooperative, friendly; dressed in casual attire; mood is described as tired ; eye contact appropriate; Speech is rapid rate, less pressured, less hyperverbal; flight of ideas; delusional ,which his mother reports is patients baseline; denies SI/HI/VH/AH. Diagnostics Vital Signs (24Hr): Vital Signs - 24 hr 01/07/25 19:30 Temperature 96.8 F Pulse Rate 89 Blood Pressure 165/74 H Pulse Oximetry 96 Oxygen Delivery Method Room Air BMI result Body Mass Index 32.8 Labs 01/03/25 17:52 01/07/25 07:58 Labs: Laboratory Results - last 48 hr 01/07/25 07:58 Sodium 142 Potassium 4.2 Chloride 107 Carbon Dioxide 26 Anion Gap 13 BUN 13 Creatinine 0.99 Estim Creat Clear Calc 144.8 Estimated GFR > 60 Random Glucose 95 Estimat Average Glucose 105 Hemoglobin A1c % 5.3 Calcium 9.4 Total Bilirubin 0.6 AST 38 H ALT 46 H Alkaline Phosphatase 94 Total Protein 7.5 Albumin 4.5 Triglycerides 205 H Cholesterol 173 LDL Cholesterol, Calc 77 HDL Cholesterol 55 Medications Medications Current Medications Acetaminophen (Acetaminophen 325 Mg Tablet) 650 mg PO Q6H PRN PRN Reason: Headache/Pain, Scale 1-10 Al Hydroxide/Mg Hydroxide (Magnesium Hydrox/Alum Hydrox 30 Ml Oral.Susp) 30 ml PO Q6H PRN PRN Reason: Heartburn/Nausea Fluvoxamine Maleate (Fluvoxamine Maleate 50 Mg Tablet) 100 mg PO BEDTIME [facility] Last Admin: 01/07/25 20:16 Dose: 100 mg Haloperidol (Haloperidol 5 Mg Tablet) 5 mg PO Q4H PRN PRN Reason: agitation/psychosis Hydroxyzine HCl (Hydroxyzine Hcl 50 Mg Tablet) 50 mg PO Q6H PRN PRN Reason: mild anxiety Lorazepam (Lorazepam 1 Mg Tablet) 1 mg PO Q4H PRN PRN Reason: severe anxiety Lorazepam (Lorazepam 0.5 Mg Tablet) 0.5 mg PO BID [facility] Last Admin: 01/08/25 10:05 Dose: Not Given Magnesium Hydroxide (Milk Of Magnesia 30 Ml Oral.Susp) 30 ml PO DAILY PRN PRN Reason: Constipation Melatonin (Melatonin 3 Mg Tablet) 6 mg PO BEDTIME [facility] Last Admin: 01/07/25 20:15 Dose: 6 mg Nicotine (Nicotine 21 Mg Patch.Td24) 21 mg TRANSDERMA DAILY PRN PRN Reason: nicotine craving Nicotine Polacrilex (Nicotine Polacrilex 2 Mg Gum) 2 mg BUCCAL Q2H PRN PRN Reason: Nicotine Cravings Olanzapine (Olanzapine 10 Mg Tablet) 30 mg PO BEDTIME [facility] Last Admin: 01/07/25 20:16 Dose: 30 mg Trazodone HCl (Trazodone Hcl 50 Mg Tablet) 50 mg PO BEDTIME MRX1 PRN PRN Reason: mild anxiety Allergies Allergies Allergy/AdvReac Type Severity Reaction Status Date / Time No Known Allergies Allergy Verified 01/03/25 17:30 Assessment & Plan Assessment & Plan (1) Schizoaffective disorder: Status: Acute Code(s): F25.9 - Schizoaffective disorder, unspecified (2) PTSD (post-traumatic stress disorder): Status: Acute Code(s): F43.10 - Post-traumatic stress disorder, unspecified Plan Patient is a 34 year old male with hx of schizoaffective d/o and PTSD who was brought in via ambulance d/t disorganized and delusional thinking secondary to medication noncompliance. Plan: CV 15 minute safety checks Continue home medications Order mouth checks with medication administration d/t hx of possibly cheeking. obtain collateral encourage groups discharge planning 01/07: Patient signed 3 day notice last evening, then retracted 3 day notice. Patient continues with rapid, pressured speech, hyperverbal. Flight of ideas. Patient reports he came to the hospital d/t needing a medication adjustment ; pt has been medication compliant. Patient reports feeling tired and feeling my state of sloth coming back ; pt continues to talk about [place] . Difficult to follow during conversation d/t rapidly changing topics. Smiling and laughing to self. Will contact patient's mother tomorrow to obtain information regarding pt's baseline. Continue tx plan. 01/08: Laying in bed napping most of morning. Keeping to self. Slower speech today. less hyperverbal. More organized but still flights of ideas and delusional. Pt stated, I'm lucho upset because I'm supposed to be taking care of a sight seeing person with slits in his eyes. But I'm here rather than at respite . Patient requested to have Zyprexa PRN added; Start: Zyprexa 5mg PO BID PRN psychosis/agitation. denies SI/HI/VH/AH. T/W spoke to Brents mother, Cecille Krause, who reports at baseline, pt is delusional and presents with rapid and pressured speech. Patient educated on: diagnosis and medication risk/benefits Reason for continued inpatient stay Substantial Risk for: med/psych decompensation Time Spent With Patient Time: Total time managing care of this patient today _20___ minutes.
[2025-01-08 20:00] VITALS: BP 128/68; PULSE 81; RESP 16; TEMP 36.8; O2SAT 97
[2025-01-09 07:48] VITALS: BP 135/79; PULSE 72; RESP 14; TEMP 36.4; O2SAT 97
--- NOTE | 2025-01-09 10:01 | HO.PSYCHPN ---
Subjective Subjective Date of Service: 01/09/25 Reason For Visit: Crisis Subjective Notes: Conditional Voluntary Interim History: Active on unit. Keeping to self. no longer hyperverbal. Patient reports feeling sad today d/t not wanting to be in the hospital and wanting to be outside . He reports sleeping well. Patient is requesting to be discharged soon. denies SI/HI/VH/AH. Encouraged to attend more groups to make the day go by faster. Plan to discharge Monday if continues to improve. Continue tx plan. Medication Compliance: Yes Side effects from medications: No Attending Groups: Intermittent Mental Status Exam Mental Status Exam Narrative: Pt is alert and oriented; behavior is cooperative, friendly; dressed in casual attire; mood is described as sad ; eye contact appropriate; Speech is normal rate, and volume, not pressured; delusional statements at times;which his mother reports is patients baseline; denies SI/HI/VH/AH. Diagnostics Vital Signs (24Hr): Vital Signs - 24 hr 01/08/25 20:00 01/09/25 07:48 Temperature 98.2 F 97.5 F Pulse Rate 81 72 Respiratory Rate 16 14 Blood Pressure 128/68 135/79 Pulse Oximetry 97 97 Oxygen Delivery Method Room Air Room Air BMI result Body Mass Index 32.8 Labs 01/03/25 17:52 01/07/25 07:58 Medications Medications Current Medications Acetaminophen (Acetaminophen 325 Mg Tablet) 650 mg PO Q6H PRN PRN Reason: Headache/Pain, Scale 1-10 Al Hydroxide/Mg Hydroxide (Magnesium Hydrox/Alum Hydrox 30 Ml Oral.Susp) 30 ml PO Q6H PRN PRN Reason: Heartburn/Nausea Fluvoxamine Maleate (Fluvoxamine Maleate 50 Mg Tablet) 100 mg PO BEDTIME [facility] Last Admin: 01/08/25 20:12 Dose: Not Given Hydroxyzine HCl (Hydroxyzine Hcl 50 Mg Tablet) 50 mg PO Q6H PRN PRN Reason: mild anxiety Lorazepam (Lorazepam 0.5 Mg Tablet) 0.5 mg PO BID [facility] Last Admin: 01/09/25 09:18 Dose: Not Given Magnesium Hydroxide (Milk Of Magnesia 30 Ml Oral.Susp) 30 ml PO DAILY PRN PRN Reason: Constipation Melatonin (Melatonin 3 Mg Tablet) 6 mg PO BEDTIME [facility] Last Admin: 01/08/25 20:05 Dose: 6 mg Nicotine Polacrilex (Nicotine Polacrilex 2 Mg Gum) 2 mg BUCCAL Q2H PRN PRN Reason: Nicotine Cravings Last Admin: 01/09/25 05:06 Dose: 2 mg Olanzapine (Olanzapine 10 Mg Tablet) 30 mg PO BEDTIME [facility] Last Admin: 01/08/25 20:05 Dose: 30 mg Olanzapine (Olanzapine 5 Mg Tablet) 5 mg PO BID PRN PRN Reason: psychosis/agitation Last Admin: 01/08/25 13:40 Dose: 5 mg Trazodone HCl (Trazodone Hcl 50 Mg Tablet) 50 mg PO BEDTIME MRX1 PRN PRN Reason: mild anxiety Allergies Allergies Allergy/AdvReac Type Severity Reaction Status Date / Time No Known Allergies Allergy Verified 01/03/25 17:30 Assessment & Plan Assessment & Plan (1) Schizoaffective disorder: Status: Acute Code(s): F25.9 - Schizoaffective disorder, unspecified (2) PTSD (post-traumatic stress disorder): Status: Acute Code(s): F43.10 - Post-traumatic stress disorder, unspecified Plan Patient is a 34 year old male with hx of schizoaffective d/o and PTSD who was brought in via ambulance d/t disorganized and delusional thinking secondary to medication noncompliance. Plan: CV 15 minute safety checks Continue home medications Order mouth checks with medication administration d/t hx of possibly cheeking. obtain collateral encourage groups discharge planning 01/07: Patient signed 3 day notice last evening, then retracted 3 day notice. Patient continues with rapid, pressured speech, hyperverbal. Flight of ideas. Patient reports he came to the hospital d/t needing a medication adjustment ; pt has been medication compliant. Patient reports feeling tired and feeling my state of sloth coming back ; pt continues to talk about [place] . Difficult to follow during conversation d/t rapidly changing topics. Smiling and laughing to self. Will contact patient's mother tomorrow to obtain information regarding pt's baseline. Continue tx plan. 01/08: Laying in bed napping most of morning. Keeping to self. Slower speech today. less hyperverbal. More organized but still flights of ideas and delusional. Pt stated, I'm lucho upset because I'm supposed to be taking care of a sight seeing person with slits in his eyes. But I'm here rather than at respite . Patient requested to have Zyprexa PRN added; Start: Zyprexa 5mg PO BID PRN psychosis/agitation. denies SI/HI/VH/AH. T/W spoke to Brents mother, Cecille Krause, who reports at baseline, pt is delusional and presents with rapid and pressured speech. 01/09: Active on unit. Keeping to self. no longer hyperverbal. Patient reports feeling sad today d/t not wanting to be in the hospital and wanting to be outside . He reports sleeping well. Patient is requesting to be discharged soon. denies SI/HI/VH/AH. Encouraged to attend more groups to make the day go by faster. Plan to discharge Monday if continues to improve. Continue tx plan. Patient educated on: diagnosis, medication risk/benefits and therapeutic strategies Reason for continued inpatient stay Substantial Risk for: med/psych decompensation Time Spent With Patient Time: Total time managing care of this patient today _20___ minutes.
[2025-01-09 20:00] VITALS: BP 134/61; PULSE 82; RESP 16; TEMP 36.2; O2SAT 98
[2025-01-10 07:44] VITALS: BP 142/94; PULSE 76; RESP 18; TEMP 36.6; O2SAT 98
--- NOTE | 2025-01-10 13:35 | HO.PSYCHPN ---
Subjective Subjective Date of Service: 01/10/25 Reason For Visit: Crisis Subjective Notes: Conditional Voluntary Interim History: Active on unit. Keeping to self. Patient continues to report feeling sad today d/t wanting to go back to respite . Focused on discharge. He reports sleeping well. denies SI/HI/VH/AH. Some delusional statements regarding having special sight . Continue tx plan. Medication Compliance: Yes Side effects from medications: No Attending Groups: Intermittent Mental Status Exam Mental Status Exam Narrative: Pt is alert and oriented; behavior is cooperative, friendly; dressed in casual attire; mood is described as sad ; eye contact appropriate; Speech is normal rate, and volume, not pressured; delusional statements at times;which his mother reports is patients baseline; denies SI/HI/VH/AH. Diagnostics Vital Signs (24Hr): Vital Signs - 24 hr 01/09/25 20:00 01/10/25 07:44 Temperature 97.2 F 97.9 F Pulse Rate 82 76 Respiratory Rate 16 18 Blood Pressure 134/61 142/94 H Pulse Oximetry 98 98 Oxygen Delivery Method Room Air Room Air BMI result Body Mass Index 32.8 Labs 01/03/25 17:52 01/07/25 07:58 Medications Medications Current Medications Acetaminophen (Acetaminophen 325 Mg Tablet) 650 mg PO Q6H PRN PRN Reason: Headache/Pain, Scale 1-10 Al Hydroxide/Mg Hydroxide (Magnesium Hydrox/Alum Hydrox 30 Ml Oral.Susp) 30 ml PO Q6H PRN PRN Reason: Heartburn/Nausea Fluvoxamine Maleate (Fluvoxamine Maleate 50 Mg Tablet) 100 mg PO BEDTIME [facility] Last Admin: 01/09/25 20:21 Dose: Not Given Hydroxyzine HCl (Hydroxyzine Hcl 50 Mg Tablet) 50 mg PO Q6H PRN PRN Reason: mild anxiety Lorazepam (Lorazepam 0.5 Mg Tablet) 0.5 mg PO BID [facility] Last Admin: 01/10/25 09:00 Dose: Not Given Magnesium Hydroxide (Milk Of Magnesia 30 Ml Oral.Susp) 30 ml PO DAILY PRN PRN Reason: Constipation Melatonin (Melatonin 3 Mg Tablet) 6 mg PO BEDTIME [facility] Last Admin: 01/09/25 20:12 Dose: 6 mg Nicotine Polacrilex (Nicotine Polacrilex 2 Mg Gum) 2 mg BUCCAL Q2H PRN PRN Reason: Nicotine Cravings Last Admin: 01/09/25 05:06 Dose: 2 mg Olanzapine (Olanzapine 10 Mg Tablet) 30 mg PO BEDTIME [facility] Last Admin: 01/09/25 20:12 Dose: 30 mg Olanzapine (Olanzapine 5 Mg Tablet) 5 mg PO BID PRN PRN Reason: psychosis/agitation Last Admin: 01/10/25 12:30 Dose: 5 mg Trazodone HCl (Trazodone Hcl 50 Mg Tablet) 50 mg PO BEDTIME MRX1 PRN PRN Reason: mild anxiety Allergies Allergies Allergy/AdvReac Type Severity Reaction Status Date / Time No Known Allergies Allergy Verified 01/03/25 17:30 Assessment & Plan Assessment & Plan (1) Schizoaffective disorder: Status: Acute Code(s): F25.9 - Schizoaffective disorder, unspecified (2) PTSD (post-traumatic stress disorder): Status: Acute Code(s): F43.10 - Post-traumatic stress disorder, unspecified Plan Patient is a 34 year old male with hx of schizoaffective d/o and PTSD who was brought in via ambulance d/t disorganized and delusional thinking secondary to medication noncompliance. Plan: CV 15 minute safety checks Continue home medications Order mouth checks with medication administration d/t hx of possibly cheeking. obtain collateral encourage groups discharge planning 01/07: Patient signed 3 day notice last evening, then retracted 3 day notice. Patient continues with rapid, pressured speech, hyperverbal. Flight of ideas. Patient reports he came to the hospital d/t needing a medication adjustment ; pt has been medication compliant. Patient reports feeling tired and feeling my state of sloth coming back ; pt continues to talk about [place] and [place] . Difficult to follow during conversation d/t rapidly changing topics. Smiling and laughing to self. Will contact patient's mother tomorrow to obtain information regarding pt's baseline. Continue tx plan. 01/08: Laying in bed napping most of morning. Keeping to self. Slower speech today. less hyperverbal. More organized but still flights of ideas and delusional. Pt stated, I'm lucho upset because I'm supposed to be taking care of a sight seeing person with slits in his eyes. But I'm here rather than at respite . Patient requested to have Zyprexa PRN added; Start: Zyprexa 5mg PO BID PRN psychosis/agitation. denies SI/HI/VH/AH. T/W spoke to Brents mother, Cecille Krause, who reports at baseline, pt is delusional and presents with rapid and pressured speech. 01/09: Active on unit. Keeping to self. no longer hyperverbal. Patient reports feeling sad today d/t not wanting to be in the hospital and wanting to be outside . He reports sleeping well. Patient is requesting to be discharged soon. denies SI/HI/VH/AH. Encouraged to attend more groups to make the day go by faster. Plan to discharge Monday if continues to improve. Continue tx plan. 01/10: Active on unit. Keeping to self. Patient continues to report feeling sad today d/t wanting to go back to respite . Focused on discharge. He reports sleeping well. denies SI/HI/VH/AH. Some delusional statements regarding having special sight . Continue tx plan. Patient educated on: diagnosis and medication risk/benefits Reason for continued inpatient stay Substantial Risk for: med/psych decompensation Time Spent With Patient Time: Total time managing care of this patient today _20___ minutes.
[2025-01-10 20:00] VITALS: BP 153/67; PULSE 92; RESP 18; TEMP 36.5; O2SAT 94
[2025-01-11 08:23] VITALS: BP 158/83; PULSE 85; RESP 16; TEMP 36.4; O2SAT 96
--- NOTE | 2025-01-11 09:18 | P.PNPSI_ITS ---
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 He does appear close to his baseline which includes chronic psychosis with bizarre delusions and hallucinations, but overall they are not particularly distressing to brand when he is adherent with medications. When he decompensates level of psychosis does intensify, he can become agitated, confrontational, very poor self-care and difficult to redirect. He has been declining Luvox for unclear reasons unable to give promotion writer clear rationale why. Does endorse hearing a male voice saying words such as rape, kill, attacking his family which is unfortunately a baseline experience. Is able to distract self at times does not feel obligated to react or respond. Reported feeling emotional today because he lost a friend recently further exploration, this friend was in fact a tree (yes a tree that was cut cut down). was open to olanzapine being adjusted while in the hospital and will therefore increase total daily dose. Will also communicate with mom who is client's legal guardian at [phone]. Is looking forward to discharge back to [facility] respite bed through [facility] in [place]. Medication Compliance: Intermittent Side effects from medications: No Attending Groups: No Review of Systems Acute medical concerns: No Review of Systems Review of Systems Nothing acute Mental Status Exam Mental Status Exam Narrative: Pt is alert and oriented; behavior is cooperative, friendly; dressed in casual attire; mood is described as sad ; eye contact appropriate; Speech is normal rate, and volume, not pressured; delusional statements at times;which his mother reports is patients baseline; denies SI/HI/VH/AH. Diagnostics Vital Signs (24Hr): Vital Signs - 24 hr 01/10/25 20:00 01/11/25 08:23 Temperature 97.7 F 97.6 F Pulse Rate 92 85 Respiratory Rate 18 16 Blood Pressure 153/67 H 158/83 H Pulse Oximetry 94 96 Oxygen Delivery Method Room Air Room Air BMI result Body Mass Index 32.8 Labs 01/03/25 17:52 01/07/25 07:58 Medications Medications Current Medications Acetaminophen (Acetaminophen 325 Mg Tablet) 650 mg PO Q6H PRN PRN Reason: Headache/Pain, Scale 1-10 Al Hydroxide/Mg Hydroxide (Magnesium Hydrox/Alum Hydrox 30 Ml Oral.Susp) 30 ml PO Q6H PRN PRN Reason: Heartburn/Nausea Fluvoxamine Maleate (Fluvoxamine Maleate 50 Mg Tablet) 100 mg PO BEDTIME [facility] Last Admin: 01/10/25 20:01 Dose: Not Given Hydroxyzine HCl (Hydroxyzine Hcl 50 Mg Tablet) 50 mg PO Q6H PRN PRN Reason: mild anxiety Last Admin: 01/10/25 15:17 Dose: 50 mg Lorazepam (Lorazepam 0.5 Mg Tablet) 0.5 mg PO BID [facility] Last Admin: 01/11/25 08:33 Dose: Not Given Magnesium Hydroxide (Milk Of Magnesia 30 Ml Oral.Susp) 30 ml PO DAILY PRN PRN Reason: Constipation Melatonin (Melatonin 3 Mg Tablet) 6 mg PO BEDTIME [facility] Last Admin: 01/10/25 19:57 Dose: 6 mg Nicotine Polacrilex (Nicotine Polacrilex 2 Mg Gum) 2 mg BUCCAL Q2H PRN PRN Reason: Nicotine Cravings Last Admin: 01/09/25 05:06 Dose: 2 mg Olanzapine (Olanzapine 10 Mg Tablet) 30 mg PO BEDTIME [facility] Last Admin: 01/10/25 19:57 Dose: 30 mg Olanzapine (Olanzapine 5 Mg Tablet) 5 mg PO BID PRN PRN Reason: psychosis/agitation Last Admin: 01/11/25 07:33 Dose: 5 mg Trazodone HCl (Trazodone Hcl 50 Mg Tablet) 50 mg PO BEDTIME MRX1 PRN PRN Reason: mild anxiety Allergies Allergies Allergy/AdvReac Type Severity Reaction Status Date / Time No Known Allergies Allergy Verified 01/03/25 17:30 Assessment & Plan Assessment & Plan (1) Schizoaffective disorder: Status: Acute Code(s): F25.9 - Schizoaffective disorder, unspecified (2) PTSD (post-traumatic stress disorder): Status: Acute Code(s): F43.10 - Post-traumatic stress disorder, unspecified Plan Patient is a 34 year old male with hx of schizoaffective d/o and PTSD who was brought in via ambulance d/t disorganized and delusional thinking secondary to medication noncompliance. Plan: CV 15 minute safety checks Continue home medications Order mouth checks with medication administration d/t hx of possibly cheeking. obtain collateral encourage groups discharge planning 01/07: Patient signed 3 day notice last evening, then retracted 3 day notice. Patient continues with rapid, pressured speech, hyperverbal. Flight of ideas. Patient reports he came to the hospital d/t needing a medication adjustment ; pt has been medication compliant. Patient reports feeling tired and feeling my state of sloth coming back ; pt continues to talk about [place] and [place] . Difficult to follow during conversation d/t rapidly changing topics. Smiling and laughing to self. Will contact patient's mother tomorrow to obtain information regarding pt's baseline. Continue tx plan. 01/08: Laying in bed napping most of morning. Keeping to self. Slower speech today. less hyperverbal. More organized but still flights of ideas and delusional. Pt stated, I'm lucho upset because I'm supposed to be taking care of a sight seeing person with slits in his eyes. But I'm here rather than at respite . Patient requested to have Zyprexa PRN added; Start: Zyprexa 5mg PO BID PRN psychosis/agitation. denies SI/HI/VH/AH. T/W spoke to Brents mother, Cecille Krause, who reports at baseline, pt is delusional and presents with rapid and pressured speech. 01/09: Active on unit. Keeping to self. no longer hyperverbal. Patient reports feeling sad today d/t not wanting to be in the hospital and wanting to be outside . He reports sleeping well. Patient is requesting to be discharged soon. denies SI/HI/VH/AH. Encouraged to attend more groups to make the day go by faster. Plan to discharge Monday if continues to improve. Continue tx plan. 01/10: Active on unit. Keeping to self. Patient continues to report feeling sad today d/t wanting to go back to respite . Focused on discharge. He reports sleeping well. denies SI/HI/VH/AH. Some delusional statements regarding having special sight . Continue tx plan. 01/11/2025: Increase total daily dose of olanzapine from 30 mg to 40 mg by adding scheduled 5 mg morning and afternoon and maintaining 30 mg scheduled at bedtime. Patient in agreement with same. Otherwise does appear at his baseline which include psychosis, intermittent disorganized thoughts and behavior, but pleasant and harmless and able to follow direction. Reason for continued inpatient stay Substantial Risk for: inability to function and rapid decompensation Time Spent With Patient Time: Total time managing care of this patient today ____ minutes.
[2025-01-11 20:00] VITALS: BP 149/72; PULSE 83; RESP 18; TEMP 36.1; O2SAT 96
--- NOTE | 2025-01-12 07:50 | P.PNPSI_ITS ---
Subjective Subjective Date of Service: 01/12/25 Reason For Visit: Crisis Subjective Notes: Conditional Voluntary Interim History: Continues to appear close to his baseline - chronic psychosis with bizarre delusions and hallucinations, but overall they are not particularly distressing to Andrew when he is adherent with medications. Tolerating higher overall total daily dose of olanzapine 35 mg and prefers to have 5 mg dose in the afternoon versus the morning and an additional 5 mg as needed available . Otherwise reports feeling safe and supported in current hospital setting. Talked about energy levels and connected colors and fear, hard to follow his thought form which is not unusual at baseline. Is looking forward to discharge back to [facility] respite bed through [facility] in [place]. Medication Compliance: Yes Side effects from medications: No Attending Groups: No Review of Systems Acute medical concerns: No Review of Systems Review of Systems Nothing acute Mental Status Exam Mental Status Exam Narrative: Pt is alert and oriented; behavior is cooperative, friendly; dressed in casual attire; mood is described as not bad today ; eye contact appropriate; Speech is normal rate, and volume, not pressured; delusional statements at times;which is patients baseline; denies SI/HI/VH/AH. Diagnostics Vital Signs (24Hr): Vital Signs - 24 hr 01/11/25 08:23 01/11/25 20:00 Temperature 97.6 F 97.0 F Pulse Rate 85 83 Respiratory Rate 16 18 Blood Pressure 158/83 H 149/72 H Pulse Oximetry 96 96 Oxygen Delivery Method Room Air Room Air BMI result Body Mass Index 32.8 Labs 01/03/25 17:52 01/07/25 07:58 Medications Medications Current Medications Acetaminophen (Acetaminophen 325 Mg Tablet) 650 mg PO Q6H PRN PRN Reason: Headache/Pain, Scale 1-10 Al Hydroxide/Mg Hydroxide (Magnesium Hydrox/Alum Hydrox 30 Ml Oral.Susp) 30 ml PO Q6H PRN PRN Reason: Heartburn/Nausea Fluvoxamine Maleate (Fluvoxamine Maleate 50 Mg Tablet) 100 mg PO BEDTIME [facility] Last Admin: 01/11/25 19:58 Dose: Not Given Hydroxyzine HCl (Hydroxyzine Hcl 50 Mg Tablet) 50 mg PO Q6H PRN PRN Reason: mild anxiety Last Admin: 01/11/25 10:47 Dose: 50 mg Lorazepam (Lorazepam 0.5 Mg Tablet) 0.5 mg PO BID [facility] Last Admin: 01/11/25 19:58 Dose: Not Given Magnesium Hydroxide (Milk Of Magnesia 30 Ml Oral.Susp) 30 ml PO DAILY PRN PRN Reason: Constipation Melatonin (Melatonin 3 Mg Tablet) 6 mg PO BEDTIME [facility] Last Admin: 01/11/25 19:56 Dose: 6 mg Nicotine Polacrilex (Nicotine Polacrilex 2 Mg Gum) 2 mg BUCCAL Q2H PRN PRN Reason: Nicotine Cravings Last Admin: 01/09/25 05:06 Dose: 2 mg Olanzapine (Olanzapine 10 Mg Tablet) 30 mg PO BEDTIME [facility] Last Admin: 01/11/25 19:56 Dose: 30 mg Olanzapine (Olanzapine 5 Mg Tablet) 5 mg PO BID@0900,1400 [facility] Trazodone HCl (Trazodone Hcl 50 Mg Tablet) 50 mg PO BEDTIME MRX1 PRN PRN Reason: mild anxiety Allergies Allergies Allergy/AdvReac Type Severity Reaction Status Date / Time No Known Allergies Allergy Verified 01/03/25 17:30 Assessment & Plan Assessment & Plan (1) Schizoaffective disorder: Status: Acute Code(s): F25.9 - Schizoaffective disorder, unspecified (2) PTSD (post-traumatic stress disorder): Status: Acute Code(s): F43.10 - Post-traumatic stress disorder, unspecified Plan Patient is a 34 year old male with hx of schizoaffective d/o and PTSD who was brought in via ambulance d/t disorganized and delusional thinking secondary to medication noncompliance. Plan: CV 15 minute safety checks Continue home medications Order mouth checks with medication administration d/t hx of possibly cheeking. obtain collateral encourage groups discharge planning 01/07: Patient signed 3 day notice last evening, then retracted 3 day notice. Patient continues with rapid, pressured speech, hyperverbal. Flight of ideas. Patient reports he came to the hospital d/t needing a medication adjustment ; pt has been medication compliant. Patient reports feeling tired and feeling my state of sloth coming back ; pt continues to talk about [place] and [place] . Difficult to follow during conversation d/t rapidly changing topics. Smiling and laughing to self. Will contact patient's mother tomorrow to obtain information regarding pt's baseline. Continue tx plan. 01/08: Laying in bed napping most of morning. Keeping to self. Slower speech today. less hyperverbal. More organized but still flights of ideas and delusional. Pt stated, I'm lucho upset because I'm supposed to be taking care of a sight seeing person with slits in his eyes. But I'm here rather than at respite . Patient requested to have Zyprexa PRN added; Start: Zyprexa 5mg PO BID PRN psychosis/agitation. denies SI/HI/VH/AH. T/W spoke to Brents mother, Cecille Krause, who reports at baseline, pt is delusional and presents with rapid and pressured speech. 01/09: Active on unit. Keeping to self. no longer hyperverbal. Patient reports feeling sad today d/t not wanting to be in the hospital and wanting to be outside . He reports sleeping well. Patient is requesting to be discharged soon. denies SI/HI/VH/AH. Encouraged to attend more groups to make the day go by faster. Plan to discharge Monday if continues to improve. Continue tx plan. 01/10: Active on unit. Keeping to self. Patient continues to report feeling sad today d/t wanting to go back to respite . Focused on discharge. He reports sleeping well. denies SI/HI/VH/AH. Some delusional statements regarding having special sight . Continue tx plan. 01/11/2025: Increase total daily dose of olanzapine from 30 mg to 40 mg by adding scheduled 5 mg morning and afternoon and maintaining 30 mg scheduled at bedtime. Patient in agreement with same. Otherwise does appear at his baseline which include psychosis, intermittent disorganized thoughts and behavior, but pleasant and harmless and able to follow direction. 01/12/25: Follow up Dr. Cristofer Yang Monday01/17/25 at 3pm, [facility], [facility]. Social Work please Call [phone] to confirm AND fax DC summary Reason for continued inpatient stay Substantial Risk for: inability to function Time Spent With Patient Time: Total time managing care of this patient today ____ minutes.
[2025-01-12 08:00] VITALS: BP 126/68; PULSE 80; RESP 14; TEMP 36.1; O2SAT 97
[2025-01-12 19:25] VITALS: BP 120/79; PULSE 105; RESP 16; TEMP 36.2; O2SAT 95
[2025-01-13 08:00] VITALS: BP 149/86; PULSE 91; RESP 16; TEMP 36.2; O2SAT 97
--- NOTE | 2025-01-13 09:53 | P.DS_ITS ---
DS: Providers Provider Date of Service: 01/13/25 Date of admission: 01/06/25 12:24 Date of discharge: 01/13/25 Primary care physician: Noah Physician Admitting clinician: Johana James Attending physician on admission: Tr Nation Attending physician on discharge: Tr Nation Discharging clinician: Johana James DS: Diagnosis Discharge Diagnosis (1) Schizoaffective disorder: Status: Acute (2) PTSD (post-traumatic stress disorder): Status: Acute DS: Medications Discharge Medications Home Medications: Home Medications ?Medication ?Instructions ?Recorded ?Confirmed aripiprazole lauroxil 1,064 mg/3.9 1,064 mg IM [id number] S 01/03/25 01/03/25 mL suspension,ext.rel IM syringe fluvoxamine 100 mg tablet 100 mg PO BEDTIME 01/03/25 1 03/05/24 nicotine (polacrilex) 2 mg gum 2 mg PO Q2H PRN Nicotin e Cravings 01/03/25 01/03/25 olanzapine 20 mg tablet 30 mg PO BEDTIME 01/03/25 Mental Status Exam Mental Status Exam Narrative: Pt is alert and oriented; behavior is cooperative, friendly, calm; dressed in casual attire; mood is described as good ; eye contact appropriate; Speech is normal rate, and volume, not pressured; delusional statements at times;which is patients baseline; denies SI/HI/VH/AH. Data Data Completed and Pending Completed studies during hospitalization [Text1]: 01/07/25 07:58 Sodium 142 Potassium 4.2 Chloride 107 Carbon Dioxide 26 Anion Gap 13 BUN 13 Creatinine 0.99 Estim Creat Clear Calc 144.8 Estimated GFR > 60 Random Glucose 95 Estimat Average Glucose 105 Hemoglobin A1c % 5.3 Calcium 9.4 Total Bilirubin 0.6 AST 38 H ALT 46 H Alkaline Phosphatase 94 Total Protein 7.5 Albumin 4.5 Triglycerides 205 H Cholesterol 173 LDL Cholesterol, Calc 77 HDL Cholesterol 55 DS: Summary Hospital Course Hospital Course: Patient is a 34 year old male with hx of schizoaffective d/o and PTSD who was brought in via ambulance d/t disorganized and delusional thinking secondary to medication noncompliance. Per crisis report, Patient was brought in from [facility] d/t feeling unsafe and presenting with disorganized and delusional thoughts. Patient was recently discharged on 12/25/24 from [facility] after being admitted for 2 months and had a step down to [facility]. Patient is connected with [facility] and has ACCS services. Patient reported having super gramajo and attempted to demonstrate by holding up his pointer finder and then bringing it back down to his side. Patient reported having to use his gramajo today to control the strong forces across the street from the [facility]. Patient was transported to [facility] after refusing to return to [facility] due to fear of snakes . Utox negative for all substances. denies SI/HI/VH/AH. [facility] spoke to patient's mother who reported pt usually de-compensates when he is medication non-adherent or cheeking. During admission assessment, pt present alert and oriented x3. Cooperative. flight of ideas. hyperverbal. rapid, loud and pressured speech. tangential. disorganized; but able to be redirected back to conversation. Patient reports he missed two days of meds at respite ; pt stated, Man, if only not taking meds for 2 days did this to me than I really need to keep taking them. Yeah, that's probably why I'm here . Patient denies SI/HI/VH/AH. Patient was not observed responding to internal stimuli. Patient focused on discussing different universes and Yoma's who are shape shifters ; pt reports he is becoming a Yoma . Patient reports he plans on being medication compliant. Patient abruptly ended assessment and stated, are we done here? and proceeded to walk out of unit office. Plan: CV 15 minute safety checks Continue home medications Order mouth checks with medication administration d/t hx of possibly cheeking. obtain collateral encourage groups discharge planning Patient signed 3 day notice last evening, then retracted 3 day notice. Patient continues with rapid, pressured speech, hyperverbal. Flight of ideas. Patient reports he came to the hospital d/t needing a medication adjustment ; pt has been medication compliant. Patient reports feeling tired and feeling my state of sloth coming back ; pt continues to talk about Yomas and auras . Difficult to follow during conversation d/t rapidly changing topics. Smiling and laughing to self. Will contact patient's mother tomorrow to obtain information regarding pt's baseline. Continue tx plan. Laying in bed napping most of morning. Keeping to self. Slower speech today. less hyperverbal. More organized but still flights of ideas and delusional. Pt stated, I'm luhco upset because I'm supposed to be taking care of a sight seeing person with slits in his eyes. But I'm here rather than at respite . Patient requested to have Zyprexa PRN added; Start: Zyprexa 5mg PO BID PRN psychosis/agitation. denies SI/HI/VH/AH. T/W spoke to Brents mother, Cecille Krause, who reports at baseline, pt is delusional and presents with rapid and pressured speech. Active on unit. Keeping to self. no longer hyperverbal. Patient reports feeling sad today d/t not wanting to be in the hospital and wanting to be outside . He reports sleeping well. Patient is requesting to be discharged soon. denies SI/HI/VH/AH. Encouraged to attend more groups to make the day go by faster. Plan to discharge Monday if continues to improve. Continue tx plan. Active on unit. Keeping to self. Patient continues to report feeling sad today d/t wanting to go back to respite . Focused on discharge. He reports sleeping well. denies SI/HI/VH/AH. Some delusional statements regarding having special sight . Continue tx plan. Per Dr. 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 He does appear close to his baseline which includes chronic psychosis with bizarre delusions and hallucinations, but overall they are not particularly distressing to brand when he is adherent with medications. When he decompensates level of psychosis does intensify, he can become agitated, confrontational, very poor self-care and difficult to redirect. He has been declining Luvox for unclear reasons unable to give blurb writer clear rationale why. Does endorse hearing a male voice saying words such as rape, kill, attacking his family which is unfortunately a baseline experience. Is able to distract self at times does not feel obligated to react or respond. Reported feeling emotional today because he lost a friend recently further exploration, this friend was in fact a tree (yes a tree that was cut cut down). was open to olanzapine being adjusted while in the hospital and will therefore increase total daily dose. Will also communicate with mom who is client's legal guardian at [phone]. Is looking forward to discharge back to [facility] respite bed through [facility] in [place]. Continues to appear close to his baseline - chronic psychosis with bizarre delusions and hallucinations, but overall they are not particularly distressing to Andrew when he is adherent with medications. Tolerating higher overall total daily dose of olanzapine 35 mg and prefers to have 5 mg dose in the afternoon versus the morning and an additional 5 mg as needed available . Otherwise r eports feeling safe and supported in current hospital setting. Talked about energy levels and connected colors and fear, hard to follow his thought form which is not unusual at baseline. Is looking forward to discharge back to [facility] respite bed through [facility] in [place]. Increase total daily dose of olanzapine from 30 mg to 40 mg by adding scheduled 5 mg morning and afternoon and maintaining 30 mg scheduled at bedtime. Patient in agreement with same. Otherwise does appear at his baseline which include psychosis, intermittent disorganized thoughts and behavior, but pleasant and harmless and able to follow direction. Follow up Dr. Cristofer Yang Monday01/17/25 at 3pm, [facility], [address] [place] [address]. Social Work please Call [phone] to confirm AND fax DC summary Patient reports feeling good and ready to leave ; denies SI/HI/VH/AH. Patient returned to respite via his mother giving him a ride. Patient reports he plans on being medication compliant and following up with his outpatient providers. Status at Discharge Cognitive/behavioral status at discharge: Patient has insight and demonstrates good judgment in terms of wanting to pursue treatment. Patient has a safety plan that includes presenting to the closest ER or calling 911 if feeling unsafe. Functional status at discharge: independent ambulation Overall status at discharge: patient is back to baseline Time Spent with Patient Time attestation: Total time managing care of this patient today _20___ minutes. Time spent: Less than 30 minutes Discharge Plan Discharge Anticipated Discharge Date/Time: 01/13/25 11:00 Patient Disposition: Home, Self-Care Discharge Diagnosis: Schizoaffective d/c, PTSD Referrals: [facility] [Provider Group] - 1 Week Referral Note: 01-10-25 [facility] was added to patients chart. Please call [phone] to schedule a follow up appt within 7-10 days of discharge. No release or PCP on file. [facility] [Outside] - 1 Week Referral Note: Dr. Cristofer Yang Monday01/17/25 at 3pm, [facility]. Call [phone] to confirm Discharge Medications: New lorazepam 0.5 mg Tablet 0.5 mg PO BID 30 Days Qty: 0 0RF melatonin 3 mg Tablet 6 mg PO BEDTIME 30 Days Qty: 0 0RF olanzapine 5 mg Tablet 5 mg PO BID PRN (Reason: agitation or psychosis) 30 Days Qty: 0 0RF Continued nicotine (polacrilex) 2 mg gum 2 mg PO Q2H PRN (Reason: Nicotine Cravings) olanzapine 20 mg tablet 30 mg PO BEDTIME fluvoxamine 100 mg tablet 100 mg PO BEDTIME aripiprazole lauroxil 1,064 mg/3.9 mL Suspension,Extended Rel Syring 1,064 mg IM [id number] Discharge Orders: Discharge Order (Routine); Ordered 01/13/25 Ordered By: Johana James Diet: Regular diet Activity on Discharge: As tolerated Stand Alone Forms: Patient Portal Discharge page, Community Support Print Language: Kiswahili Care Plan Goals: Maintain mood and safe behaviors Take medications as prescribed Practice coping skills Continue with outpatient providers and reach out to them as needed Health Concerns: Mood stability and behaviors Plan of Treatment: Follow up with your PCP, psychiatric provider and other outpatient providers regarding above concerns Take medications as prescribed Assessment: Patient has insight and demonstrates good judgment in terms of wanting to pursue treatment. Patient has a safety plan that includes presenting to the closest ER or calling 911 if feeling unsafe. Discharge Date/Time: 01/13/25 10:18
== END 2025-01-13 10:18 | disposition home or self-care (01) | DRG 885 ==
LOC: HO.ED 17:49 → HO.PADLT16 01-06 12:30
PROVIDERS: Admitting Provider Registered Nurse; Emergency Provider Emergency Medicine; Responsible Provider Registered Nurse; Visit Provider Psychiatry & Neurology Psychiatry
DX: F25.9 Schizoaffective disorder, unspecified (principal); F43.10 Post-traumatic stress disorder, unspecified; Z79.899 Other long term (current) drug therapy
CPT/HCPCS: 36415; 80053; 80061; 80307; 81001; 83036; 85025; 93005; 99285; S9485

== ENCOUNTER → 2025-01-05 20:51 | Outpatient (BNV) | payer OTHER, SELFPAY | PROVIDERS: Emergency Provider Emergency Medicine; Visit Provider Internal Medicine | DX: Z13.6 Encounter for screening for cardiovascular disorders (principal) | CPT/HCPCS: 93010 ==

== ENCOUNTER → 2025-01-06 12:24 | Outpatient (BNV) | payer OTHER, SELFPAY | PROVIDERS: Admitting Provider Registered Nurse; Emergency Provider Emergency Medicine; Responsible Provider Registered Nurse; Visit Provider Registered Nurse | DX: F25.9 Schizoaffective disorder, unspecified (principal); F43.11 Post-traumatic stress disorder, acute | CPT/HCPCS: 90792; 99231; 99232 ==

== ENCOUNTER → 2025-01-06 12:24 | Outpatient (BNV) | payer OTHER, SELFPAY | PROVIDERS: Admitting Provider Registered Nurse; Emergency Provider Emergency Medicine; Responsible Provider Registered Nurse; Visit Provider Nurse Practitioner Family | DX: F43.10 Post-traumatic stress disorder, unspecified (principal); F25.9 Schizoaffective disorder, unspecified | CPT/HCPCS: 99221 ==